=== PATIENT | female | born 1940 | race Caucasian/White ===

== ENCOUNTER → 2020-11-19 12:26 | Outpatient (CLI) | payer MEDICARE | END | disposition home or self-care (01) | LOC: D.HCCECHO 12:26 | PROVIDERS: ATTEND Internal Medicine Cardiovascular Disease | DX: R06.00 Dyspnea, unspecified (principal) ==

== ENCOUNTER 2021-01-07 12:44 | Outpatient (CLI) | payer MEDICARE ==
[~2021-01-07] VITALS: Ht 170.2 cm; Wt 66.4 kg
[2021-01-07 14:10] VITALS: Ht 170.2 cm; Wt 66.4 kg
== END 2021-01-07 14:30 | disposition home or self-care (01) ==
LOC: D.OPS 12:44
PROVIDERS: ATTEND Family Medicine
DX: M81.0 Age-related osteoporosis without current pathological fracture (principal)